=== PATIENT | female | born 1940 | race Caucasian/White ===

== ENCOUNTER 2017-06-30 10:44 | Emergency (ER) | payer MEDICARE, MEDICAID ==
[~2017-06-30] VITALS: Ht 152.4 cm; Wt 57.3 kg
[2017-06-30 11:26] LABS: BASOPHILS # (AUTO) 0.1 X10'3 (0-0.2); BASOPHILS % (AUTO) 0.5 % (0-1); EOSINOPHILS # (AUTO) 0.1 X10'3 (0-0.9); HEMATOCRIT 39.6 % (35.0-45.0); HEMOGLOBIN 13.6 g/dl (12.0-16.0); LYMPHOCYTES # (AUTO) 1.9 X10'3 (1.1-4.8); LYMPHOCYTES % (AUTO) 16.6 % (21-51); MEAN CORPUSCULAR HEMOGLOBIN 32.5 PG (27.0-31.0); MEAN CORPUSCULAR HGB CONC 34.4 % (33.0-36.5); MEAN CORPUSCULAR VOLUME 94.3 FL (78-98); MEAN PLATELET VOLUME 7.2 FL (7.4-10.4); MONOCYTES % (AUTO) 9.1 % (2-12); NEUTROPHILS # (AUTO) 8.4 X10'3 (1.8-7.7); NEUTROPHILS % (AUTO) 72.8 % (42-75); PLATELET COUNT 396 X10'3 (140-440); RED CELL DISTRIBUTION WIDTH 14.2 % (11.5-14.5); WHITE BLOOD COUNT 11.6 X10'3 (4.5-11.0)
[2017-06-30 11:53] LABS: ALANINE AMINOTRANSFERASE 26 U/L (12-78); ALBUMIN 3.5 G/DL (3.4-5.0); ALBUMIN/GLOBULIN RATIO 0.8 (1.1-1.5); ALKALINE PHOSPHATASE 78 IU/L (46-116); ANION GAP 11 (8-16); ASPARTATE AMINO TRANSFERASE 18 U/L (10-37); BILIRUBIN,TOTAL 0.3 MG/DL (0.1-1.0); BLOOD UREA NITROGEN 44 MG/DL (7-18); BUN/CREATININE RATIO 33.1 (6.6-38.0); CALCIUM 10.3 MG/DL (8.5-10.1); CHLORIDE 98 MMOL/L (99-107); CREATININE 1.33 MG/DL (0.40-0.90); ETHANOL < 0.010 GM/DL (0.0-0.010); GLUCOSE 112 MG/DL (70-104); POTASSIUM 3.8 MMOL/L (3.5-5.1); SODIUM 136 MMOL/L (135-145); TOTAL CARBON DIOXIDE 26.8 MMOL/L (24-32); TOTAL PROTEIN 7.9 G/DL (6.4-8.2); eGFR 39 ML/MIN
[2017-06-30 13:15] LABS: CLARITY,URINE TURBID (Clear); COLOR,URINE YELLOW (Yellow); GLUCOSE, URINE NEGATIVE (Neg); KETONES,URINE NEGATIVE (Neg); LEUKOCYTE ESTERASE ,URINE LARGE (Neg); NITRITES, URINE NEGATIVE (Neg); OCCULT BLOOD,URINE NEGATIVE (Neg); PROTEIN,URINE TRACE mg/dl (Neg); UROBILINOGEN,URINE 0.2 E.U/dL (0.2-1.0)
[2017-06-30 13:28] LABS: UA COLLECTION TYPE CLN CATCH MIDSTREAM
[2017-06-30 13:30] LABS: SQUAMOUS EPITHELIAL CELL,UR MANY /LPF (FEW)
[2017-06-30 13:31] LABS: MUCUS STRANDS NONE SEEN /LPF (Neg); TRANSITIONAL EPI CELLS,URINE FEW /HPF; WBC,URINE 50-100 /HPF (0-4)
[2017-06-30 13:32] LABS: BACTERIA,URINE 4+ /HPF (Neg); RBC,URINE 0-2 /HPF (0-2)
[2017-06-30 13:34] LABS: URINE AMPHETAMINE SCREEN NEGATIVE (Neg); URINE BARBITUATE SCREEN NEGATIVE (Neg); URINE BENZODIAZEPINES SCREEN NEGATIVE (Neg); URINE CANNABINOID SCREEN NEGATIVE (Neg); URINE COCAINE SCREEN NEGATIVE (Neg); URINE METHADONE SCREEN NEGATIVE (Neg); URINE OPIATE SCREEN NEGATIVE (Neg); URINE PHENCYCLIDINE SCREEN NEGATIVE (Neg)
[2017-06-30 17:23] VITALS: BP 112/55
[2017-06-30 17:36] LABS: CLARITY,URINE CLOUDY (Clear); COLOR,URINE STRAW (Yellow); GLUCOSE, URINE NEGATIVE (Neg); KETONES,URINE NEGATIVE (Neg); LEUKOCYTE ESTERASE ,URINE SMALL (Neg); NITRITES, URINE POSITIVE (Neg); OCCULT BLOOD,URINE NEGATIVE (Neg); PH,URINE 6.5 (4.8-8.0); PROTEIN,URINE NEGATIVE (Neg); UA COLLECTION TYPE STRAIGHT CATH; UROBILINOGEN,URINE 0.2 E.U/dL (0.2-1.0)
[2017-06-30 17:47] LABS: BACTERIA,URINE 3+ /HPF (Neg); MUCUS STRANDS NONE SEEN /LPF (Neg); RBC,URINE NONE SEEN /HPF (0-2); SQUAMOUS EPITHELIAL CELL,UR FEW /LPF (FEW); TRANSITIONAL EPI CELLS,URINE FEW /HPF
[2017-06-30] MEDS ORDERED: CEPH-572 PO (18:31)
[2017-06-30] MEDS ORDERED: LISI-600 PO (22:42)
[2017-06-30] MEDS ORDERED: SERT100T PO (22:42)
[2017-06-30] MEDS ORDERED: TRAZ-143 PO (22:42)
[2017-06-30] MEDS ORDERED: OSC500T PO (22:42)
== END 2017-06-30 20:34 | disposition home or self-care (01) ==
LOC: ER 10:45
DX: E83.52 Hypercalcemia (principal); N18.3 Chronic kidney disease, stage 3 (moderate); F32.9 Major depressive disorder, single episode, unspecified; N39.0 Urinary tract infection, site not specified
CPT/HCPCS: 36415; 80053; 80305; 80320; 81001; 84443; 85025; 87077; 87088; 87186; 99284

== ENCOUNTER 2017-06-30 19:50 | Inpatient (IN) | payer MEDICARE, MEDICAID ==
[~2017-06-30] VITALS: Ht 152.4 cm; Wt 55.6 kg
[~2017-06-30 19:50] MED LIST: CEPH-572 PO
[2017-06-30 21:00] VITALS: BP 113/64
[2017-06-30] MEDS ORDERED: traZODone 50mg tablet PO SCH (22:05)
[2017-06-30] MEDS ORDERED: SERT100T PO (22:42)
[2017-06-30] MEDS ORDERED: LISI-600 PO (22:42)
[2017-06-30] MEDS ORDERED: TRAZ-143 PO (22:42)
[2017-06-30] MEDS ORDERED: OSC500T PO (22:42)
[2017-07-01] MEDS ORDERED: OLANZapine 5mg rapidly disint. tablet PO ONE (00:40)
[2017-07-01] MEDS: lisinopril 20mg tablet PO SCH (07:43)
[2017-07-01] MEDS: calcium carbonate 500mg tablet PO SCH (07:43)
[2017-07-01] MEDS: cephalexin 500mg capsule PO SCH ×3 (07:43→23:02)
[2017-07-01] MEDS: sertraline 50mg tablet PO SCH (07:44)
[2017-07-01 08:00] VITALS: BP 80/50
[2017-07-01] MEDS ORDERED: levoFLOXACIN 500mg tablet PO ONE (11:35)
[2017-07-01] MEDS: sodium chloride 0.45% 1,000 ML IV SCH ×2 (12:28→22:30)
[2017-07-01] MEDS ORDERED: hydrOXYzine 25 MG tablet PO PRN (20:25)
[2017-07-01 20:30] VITALS: BP 93/50
[2017-07-01 20:41] VITALS: BP 93/49
[2017-07-01] MEDS ORDERED: mirtazapine 15mg tablet PO SCH (21:00)
[2017-07-02 06:18] LABS: HEMOGLOBIN A1C 6.1 % (4.5-6.2)
[2017-07-02 06:19] LABS: ALBUMIN 2.7 G/DL (3.4-5.0); ANION GAP 8 (8-16); BLOOD UREA NITROGEN 37 MG/DL (7-18); BUN/CREATININE RATIO 27.6 (6.6-38.0); CALCIUM 9.3 MG/DL (8.5-10.1); CHLORIDE 105 MMOL/L (99-107); CHOL/HDL RATIO 2.4 (0.00-4.99); CHOLESTEROL 170 MG/DL (0-200); CREATININE 1.34 MG/DL (0.40-0.90); GLUCOSE 94 MG/DL (70-104); HDL CHOLESTEROL 71 MG/DL (35-60); LDL CHOLESTEROL 79 MG/DL (50-100); POTASSIUM 4.1 MMOL/L (3.5-5.1); SODIUM 141 MMOL/L (135-145); TOTAL CARBON DIOXIDE 27.6 MMOL/L (24-32); TRIGLYCERIDES 80 MG/DL (20-135); eGFR 38 ML/MIN
[2017-07-02 08:10] VITALS: BP 121/68
[2017-07-02 08:15] LABS: IMMUNOGLOBULIN A, QN, SERUM 292 mg/dL (64-422); IMMUNOGLOBULIN G, QN, SERUM 1083 mg/dL (700-1600); IMMUNOGLOBULIN M, QN, SERUM 140 mg/dL (26-217)
[2017-07-02] MEDS: sodium chloride 0.45% 1,000 ML IV SCH ×2 (08:20→17:15)
[2017-07-02] MEDS: sertraline 50mg tablet PO SCH (08:43)
[2017-07-02] MEDS: calcium carbonate 500mg tablet PO SCH (08:43)
[2017-07-02] MEDS: lisinopril 20mg tablet PO SCH (08:44)
[2017-07-02] MEDS: levoFLOXACIN 250mg tablet PO SCH (08:55)
[2017-07-02] MEDS ORDERED: magnesium hydroxide 30ml (MOM) UD suspension PO PRN ×2 (09:55→18:45)
[2017-07-02 11:15] LABS: A/G RATIO 1.1 (0.7-1.7); ALBUMIN 3.6 g/dL (2.9-4.4); BETA GLOBULIN 1.1 g/dL (0.7-1.3); GAMMA GLOBULIN 1.1 g/dL (0.4-1.8); GLOBULIN, TOTAL 3.2 g/dL (2.2-3.9); M-SPIKE Not Observed g/dL (Not Observed); PROTEIN, TOTAL, SERUM 6.8 g/dL (6.0-8.5)
[2017-07-02] MEDS ORDERED: bisacodyl 5mg tablet.DR PO PRN (18:45)
[2017-07-02 19:44] VITALS: BP 88/52
[2017-07-02 20:00] VITALS: BP 95/55
[2017-07-02] MEDS: lactobacillus rhamnosus 10,000 MMU CELLS/CAPSULE PO SCH (20:06)
[2017-07-02] MEDS: docusate sodium 100mg/10ml UD cup PO SCH (20:06)
[2017-07-02] MEDS ORDERED: mirtazapine 15mg tablet PO SCH (21:00)
[2017-07-03] VITALS (15 sets, daily range): BP systolic 77–133; BP diastolic 35–62
[2017-07-03] MEDS: sodium chloride 0.45% 1,000 ML IV SCH (06:00)
[2017-07-03 06:12] LABS: ALBUMIN 2.4 G/DL (3.4-5.0); ANION GAP 7 (8-16); BLOOD UREA NITROGEN 33 MG/DL (7-18); BUN/CREATININE RATIO 23.6 (6.6-38.0); CALCIUM 8.8 MG/DL (8.5-10.1); CHLORIDE 107 MMOL/L (99-107); GLUCOSE 85 MG/DL (70-104); POTASSIUM 4.2 MMOL/L (3.5-5.1); SODIUM 140 MMOL/L (135-145); TOTAL CARBON DIOXIDE 25.8 MMOL/L (24-32); eGFR 37 ML/MIN
[2017-07-03] MEDS: docusate sodium 100mg/10ml UD cup PO SCH (08:00)
[2017-07-03] MEDS ORDERED: sertraline 50mg tablet PO SCH (08:00)
[2017-07-03] MEDS: lactobacillus rhamnosus 10,000 MMU CELLS/CAPSULE PO SCH (08:12)
[2017-07-03] MEDS: calcium carbonate 500mg tablet PO SCH (08:12)
[2017-07-03] MEDS: levoFLOXACIN 250mg tablet PO SCH (08:13)
[2017-07-03] MEDS: lisinopril 20mg tablet PO SCH (08:13)
[2017-07-03 09:08] LABS: BASOPHILS # (AUTO) 0.1 X10'3 (0-0.2); BASOPHILS % (AUTO) 0.7 % (0-1); EOSINOPHILS # (AUTO) 0.2 X10'3 (0-0.9); EOSINOPHILS % (AUTO) 2.1 % (0-6); HEMATOCRIT 32.7 % (35.0-45.0); HEMOGLOBIN 11.2 g/dl (12.0-16.0); LYMPHOCYTES # (AUTO) 2.1 X10'3 (1.1-4.8); LYMPHOCYTES % (AUTO) 25.4 % (21-51); MEAN CORPUSCULAR HEMOGLOBIN 32.5 PG (27.0-31.0); MEAN CORPUSCULAR HGB CONC 34.3 % (33.0-36.5); MEAN CORPUSCULAR VOLUME 94.8 FL (78-98); MEAN PLATELET VOLUME 6.8 FL (7.4-10.4); MONOCYTES # (AUTO) 0.7 X10'3 (0-0.9); MONOCYTES % (AUTO) 9.1 % (2-12); NEUTROPHILS # (AUTO) 5.2 X10'3 (1.8-7.7); NEUTROPHILS % (AUTO) 62.7 % (42-75); PLATELET COUNT 314 X10'3 (140-440); RED BLOOD COUNT 3.45 X10'6 (4.20-5.60); RED CELL DISTRIBUTION WIDTH 14.3 % (11.5-14.5); WHITE BLOOD COUNT 8.3 X10'3 (4.5-11.0)
[2017-07-03 09:22] LABS: ALANINE AMINOTRANSFERASE 19 U/L (12-78); ALBUMIN 2.7 G/DL (3.4-5.0); ALBUMIN/GLOBULIN RATIO 0.8 (1.1-1.5); ALKALINE PHOSPHATASE 61 IU/L (46-116); ANION GAP 8 (8-16); ASPARTATE AMINO TRANSFERASE 16 U/L (10-37); BILIRUBIN,TOTAL 0.6 MG/DL (0.1-1.0); BLOOD UREA NITROGEN 31 MG/DL (7-18); BUN/CREATININE RATIO 21.2 (6.6-38.0); CHLORIDE 106 MMOL/L (99-107); CREATININE 1.46 MG/DL (0.40-0.90); GLUCOSE 89 MG/DL (70-104); SODIUM 141 MMOL/L (135-145); TOTAL CARBON DIOXIDE 27.2 MMOL/L (24-32); TOTAL PROTEIN 6.3 G/DL (6.4-8.2); eGFR 35 ML/MIN
[2017-07-03 09:24] LABS: POTASSIUM 4.2 MMOL/L (3.5-5.1)
[2017-07-03] MEDS ORDERED: dextrose 5%-normal saline 1,000 ML IV ONE ×2 (13:20→14:20)
[2017-07-03 14:31] LABS: TROPONIN I < 0.04 NG/ML (0.0-0.05)
[2017-07-03] MEDS ORDERED: dextrose 5%-normal saline 1,000 ML IV SCH ×2 (14:35→18:55)
[2017-07-03 17:37] LABS: BASOPHILS # (AUTO) 0.1 X10'3 (0-0.2); BASOPHILS % (AUTO) 0.7 % (0-1); EOSINOPHILS # (AUTO) 0.1 X10'3 (0-0.9); EOSINOPHILS % (AUTO) 1.7 % (0-6); HEMATOCRIT 31.1 % (35.0-45.0); HEMOGLOBIN 10.5 g/dl (12.0-16.0); LYMPHOCYTES % (AUTO) 26.9 % (21-51); MEAN CORPUSCULAR HEMOGLOBIN 32.6 PG (27.0-31.0); MEAN CORPUSCULAR HGB CONC 33.8 % (33.0-36.5); MEAN CORPUSCULAR VOLUME 96.3 FL (78-98); MONOCYTES % (AUTO) 13.2 % (2-12); NEUTROPHILS # (AUTO) 4.3 X10'3 (1.8-7.7); NEUTROPHILS % (AUTO) 57.5 % (42-75); PLATELET COUNT 280 X10'3 (140-440); RED BLOOD COUNT 3.23 X10'6 (4.20-5.60); RED CELL DISTRIBUTION WIDTH 14.2 % (11.5-14.5); WHITE BLOOD COUNT 7.4 X10'3 (4.5-11.0)
[2017-07-03 17:55] LABS: ALANINE AMINOTRANSFERASE 20 U/L (12-78); ALBUMIN 2.4 G/DL (3.4-5.0); ALBUMIN/GLOBULIN RATIO 0.7 (1.1-1.5); ALKALINE PHOSPHATASE 53 IU/L (46-116); ANION GAP 8 (8-16); ASPARTATE AMINO TRANSFERASE 15 U/L (10-37); BILIRUBIN,TOTAL 0.3 MG/DL (0.1-1.0); BLOOD UREA NITROGEN 26 MG/DL (7-18); BUN/CREATININE RATIO 19.8 (6.6-38.0); CALCIUM 8.4 MG/DL (8.5-10.1); CHLORIDE 113 MMOL/L (99-107); CREATININE 1.31 MG/DL (0.40-0.90); GLUCOSE 103 MG/DL (70-104); LIPASE 163 U/L (73-393); POTASSIUM 3.9 MMOL/L (3.5-5.1); SODIUM 146 MMOL/L (135-145); TOTAL CARBON DIOXIDE 25.1 MMOL/L (24-32); TOTAL PROTEIN 5.7 G/DL (6.4-8.2); TROPONIN I < 0.04 NG/ML (0.0-0.05); eGFR 39 ML/MIN
[2017-07-03] MEDS ORDERED: normal saline 1000ml 1,000 ML IV ONE (18:55)
[2017-07-03] MEDS ORDERED: mirtazapine 15mg tablet PO SCH (21:00)
[2017-07-04 05:25] LABS: ALBUMIN, UR Note: % (.)
== END 2017-07-03 19:30 | disposition short-term general hospital (02) | DRG 881 ==
LOC: ADULT MH 19:50
PROVIDERS: ADMIT Psychiatry & Neurology Psychiatry; ATTEND Psychiatry & Neurology Psychiatry
DX: F32.9 Major depressive disorder, single episode, unspecified (principal); I95.9 Hypotension, unspecified; E83.52 Hypercalcemia; N39.0 Urinary tract infection, site not specified; G47.00 Insomnia, unspecified; K59.00 Constipation, unspecified; I10 Essential (primary) hypertension; F41.9 Anxiety disorder, unspecified; R63.4 Abnormal weight loss; Z98.51 Tubal ligation status; Z88.0 Allergy status to penicillin; Z68.23 Body mass index [BMI] 23.0-23.9, adult
CPT/HCPCS: 36415; 71045; 74230; 80048; 80053; 80061; 82310; 82330; 82784; 82948; 83036; 83690; 83970; 84155; 84156; 84165; 84166; 84484; 85025; 86334; 86335; 87040; 87070; 87088; 93005; 99285; J7030; J7042

== ENCOUNTER 2017-07-03 16:35 | Inpatient (IN) | payer MEDICARE, MEDICAID ==
[~2017-07-03] VITALS: Ht 152.4 cm; Wt 65.3 kg
[~2017-07-03 16:35] MED LIST changes: +LISI-600 PO; +OSC500T PO; +SERT100T PO; +TRAZ-143 PO
[2017-07-03] MEDS: levoFLOXACIN-Levaquin 500mg/D5 100 ML IV SCH (19:20)
[2017-07-03] MEDS ORDERED: magnesium hydroxide 30ml (MOM) UD suspension PO PRN (19:20)
[2017-07-03] MEDS ORDERED: ondansetron/PF 4mg/2ml inj IV PRN (19:20)
[2017-07-03] MEDS: dextrose 5%-1/2 normal saline 1,000 ML IV SCH (21:59)
[2017-07-03 22:00] VITALS: BP 88/41
[2017-07-03 22:35] LABS: ABG HCO3 23.1 mmol/L (22.0-26.0); ABG OXYGEN SATURATION 97.1 % (95-98); ABG PCO2 (T) 35.8 mmHg (32.0-45.0); ABG PH (T) 7.426 (7.350-7.450); ABG PO2 (T) 94.4 mmHg (83-108); ALLEN'S TEST Positive; FCOHb 0.3 % (0.5-1.5); FMetHb 0.1 % (0.3-1.12); FO2Hb 96.7 % (94-100); PATIENT TEMPERATURE 36.9; TOTAL HEMOGLOBIN 10.3 G/dl (12.0-16.0)
[2017-07-04] VITALS (9 sets, daily range): BP systolic 81–110; BP diastolic 37–58
[2017-07-04 01:40] LABS: CLARITY,URINE SLIGHTLY CLOUDY (Clear); COLOR,URINE YELLOW (Yellow); GLUCOSE, URINE NEGATIVE (Neg); KETONES,URINE NEGATIVE (Neg); LEUKOCYTE ESTERASE ,URINE MODERATE (Neg); NITRITES, URINE NEGATIVE (Neg); OCCULT BLOOD,URINE TRACE-INTACT (Neg); PH,URINE 5.5 (4.8-8.0); PROTEIN,URINE NEGATIVE (Neg); UROBILINOGEN,URINE 0.2 E.U/dL (0.2-1.0)
[2017-07-04 01:43] LABS: UA COLLECTION TYPE NON-SPECIFIED
[2017-07-04 01:47] LABS: BACTERIA,URINE 3+ /HPF (Neg); RBC,URINE 0-2 /HPF (0-2); SQUAMOUS EPITHELIAL CELL,UR MODERATE /LPF (FEW)
[2017-07-04 01:48] LABS: WBC CLUMPS,URINE FEW /HPF (NEGATIVE)
[2017-07-04 01:49] LABS: MUCUS STRANDS FEW /LPF (Neg)
[2017-07-04 01:50] LABS: HYALINE CASTS 0-3 /LPF (NEGATIVE)
[2017-07-04] MEDS: dextrose 5%-1/2 normal saline 1,000 ML IV SCH ×3 (05:09→16:50)
[2017-07-04 06:03] LABS: BASOPHILS % (AUTO) 0.6 % (0-1); EOSINOPHILS # (AUTO) 0.1 X10'3 (0-0.9); HEMATOCRIT 28.6 % (35.0-45.0); HEMOGLOBIN 9.9 g/dl (12.0-16.0); LYMPHOCYTES # (AUTO) 2.1 X10'3 (1.1-4.8); LYMPHOCYTES % (AUTO) 30.9 % (21-51); MEAN CORPUSCULAR HEMOGLOBIN 32.9 PG (27.0-31.0); MEAN CORPUSCULAR HGB CONC 34.5 % (33.0-36.5); MEAN CORPUSCULAR VOLUME 95.3 FL (78-98); MEAN PLATELET VOLUME 7.2 FL (7.4-10.4); MONOCYTES # (AUTO) 0.6 X10'3 (0-0.9); MONOCYTES % (AUTO) 8.2 % (2-12); NEUTROPHILS # (AUTO) 3.9 X10'3 (1.8-7.7); NEUTROPHILS % (AUTO) 58.3 % (42-75); PLATELET COUNT 261 X10'3 (140-440); RED CELL DISTRIBUTION WIDTH 14.2 % (11.5-14.5); WHITE BLOOD COUNT 6.8 X10'3 (4.5-11.0)
[2017-07-04 06:22] LABS: ALANINE AMINOTRANSFERASE 18 U/L (12-78); ALBUMIN 2.2 G/DL (3.4-5.0); ALBUMIN/GLOBULIN RATIO 0.8 (1.1-1.5); ALKALINE PHOSPHATASE 45 IU/L (46-116); ANION GAP 9 (8-16); ASPARTATE AMINO TRANSFERASE 11 U/L (10-37); BILIRUBIN,TOTAL 0.4 MG/DL (0.1-1.0); BLOOD UREA NITROGEN 19 MG/DL (7-18); BUN/CREATININE RATIO 18.6 (6.6-38.0); CHLORIDE 112 MMOL/L (99-107); CREATININE 1.02 MG/DL (0.40-0.90); GLUCOSE 96 MG/DL (70-104); POTASSIUM 3.9 MMOL/L (3.5-5.1); SODIUM 144 MMOL/L (135-145); TOTAL CARBON DIOXIDE 23.5 MMOL/L (24-32); TOTAL PROTEIN 5.1 G/DL (6.4-8.2); eGFR 53 ML/MIN
[2017-07-04] MEDS: levoFLOXACIN-Levaquin 500mg/D5 100 ML IV SCH (07:33)
[2017-07-04] MEDS ORDERED: ALPRAZolam 0.25mg tablet PO ONE (08:20)
[2017-07-04] MEDS: lactobacillus rhamnosus 10,000 MMU CELLS/CAPSULE PO SCH (21:17)
[2017-07-05] MEDS: dextrose 5%-1/2 normal saline 1,000 ML IV SCH ×2 (01:39→13:18)
[2017-07-05 03:52] VITALS: BP 82/40
[2017-07-05 05:34] LABS: BASOPHILS % (AUTO) 0.6 % (0-1); EOSINOPHILS # (AUTO) 0.2 X10'3 (0-0.9); EOSINOPHILS % (AUTO) 2.9 % (0-6); HEMATOCRIT 30.5 % (35.0-45.0); HEMOGLOBIN 10.3 g/dl (12.0-16.0); LYMPHOCYTES # (AUTO) 2.4 X10'3 (1.1-4.8); MEAN CORPUSCULAR HEMOGLOBIN 32.4 PG (27.0-31.0); MEAN CORPUSCULAR HGB CONC 33.9 % (33.0-36.5); MEAN CORPUSCULAR VOLUME 95.8 FL (78-98); MEAN PLATELET VOLUME 6.9 FL (7.4-10.4); MONOCYTES # (AUTO) 0.6 X10'3 (0-0.9); MONOCYTES % (AUTO) 9.2 % (2-12); NEUTROPHILS # (AUTO) 3.4 X10'3 (1.8-7.7); NEUTROPHILS % (AUTO) 51.3 % (42-75); PLATELET COUNT 267 X10'3 (140-440); RED BLOOD COUNT 3.18 X10'6 (4.20-5.60); WHITE BLOOD COUNT 6.6 X10'3 (4.5-11.0)
[2017-07-05 05:48] LABS: GLUCOSE 91 MG/DL (70-104)
[2017-07-05 05:49] LABS: ALANINE AMINOTRANSFERASE 20 U/L (12-78); ALBUMIN 2.2 G/DL (3.4-5.0); ALBUMIN/GLOBULIN RATIO 0.8 (1.1-1.5); ALKALINE PHOSPHATASE 47 IU/L (46-116); ANION GAP 10 (8-16); ASPARTATE AMINO TRANSFERASE 15 U/L (10-37); BILIRUBIN,TOTAL 0.3 MG/DL (0.1-1.0); BLOOD UREA NITROGEN 13 MG/DL (7-18); BUN/CREATININE RATIO 11.1 (6.6-38.0); CALCIUM 8.4 MG/DL (8.5-10.1); CHLORIDE 111 MMOL/L (99-107); CREATININE 1.17 MG/DL (0.40-0.90); POTASSIUM 3.6 MMOL/L (3.5-5.1); SODIUM 144 MMOL/L (135-145); TOTAL CARBON DIOXIDE 22.8 MMOL/L (24-32); TOTAL PROTEIN 5.1 G/DL (6.4-8.2); eGFR 45 ML/MIN
[2017-07-05 06:00] VITALS: BP 94/45
[2017-07-05] MEDS: lactobacillus rhamnosus 10,000 MMU CELLS/CAPSULE PO SCH ×2 (08:44→20:10)
[2017-07-05] MEDS: levoFLOXACIN-Levaquin 500mg/D5 100 ML IV SCH (08:45)
[2017-07-05] MEDS ORDERED: diatrozoate meglu/diatrozoate sod (37% iodine) 120ML oral solution PO SCH (10:25)
[2017-07-05] MEDS: diatr meglu/diatrizoate 30ml oral sol.-(3 dose) bottle PO SCH ×2 (10:40→13:18)
[2017-07-05 11:00] VITALS: BP 107/65
[2017-07-05 15:00] VITALS: BP 120/55
[2017-07-05] MEDS ORDERED: iohexol 300mg/ml 100ml inj. ONE (16:05)
[2017-07-05 19:00] VITALS: BP 125/58
[2017-07-05 23:00] VITALS: BP 107/59
[2017-07-06] VITALS (10 sets, daily range): BP systolic 101–148; BP diastolic 55–122
[2017-07-06] MEDS: dextrose 5%-1/2 normal saline 1,000 ML IV SCH ×3 (00:09→18:37)
[2017-07-06 05:16] LABS: BASOPHILS % (AUTO) 0.4 % (0-1); EOSINOPHILS # (AUTO) 0.2 X10'3 (0-0.9); EOSINOPHILS % (AUTO) 2.5 % (0-6); HEMATOCRIT 33.4 % (35.0-45.0); HEMOGLOBIN 11.2 g/dl (12.0-16.0); LYMPHOCYTES # (AUTO) 2.1 X10'3 (1.1-4.8); MEAN CORPUSCULAR HEMOGLOBIN 32.4 PG (27.0-31.0); MEAN CORPUSCULAR HGB CONC 33.6 % (33.0-36.5); MEAN CORPUSCULAR VOLUME 96.4 FL (78-98); MEAN PLATELET VOLUME 6.8 FL (7.4-10.4); MONOCYTES # (AUTO) 0.6 X10'3 (0-0.9); MONOCYTES % (AUTO) 8.5 % (2-12); NEUTROPHILS # (AUTO) 4.4 X10'3 (1.8-7.7); NEUTROPHILS % (AUTO) 59.6 % (42-75); PLATELET COUNT 313 X10'3 (140-440); RED BLOOD COUNT 3.46 X10'6 (4.20-5.60); WHITE BLOOD COUNT 7.4 X10'3 (4.5-11.0)
[2017-07-06 05:49] LABS: ALANINE AMINOTRANSFERASE 19 U/L (12-78); ALBUMIN 2.3 G/DL (3.4-5.0); ALBUMIN/GLOBULIN RATIO 0.7 (1.1-1.5); ALKALINE PHOSPHATASE 58 IU/L (46-116); ANION GAP 8 (8-16); ASPARTATE AMINO TRANSFERASE 15 U/L (10-37); BILIRUBIN,TOTAL 0.3 MG/DL (0.1-1.0); BLOOD UREA NITROGEN 8 MG/DL (7-18); BUN/CREATININE RATIO 7.2 (6.6-38.0); CALCIUM 8.7 MG/DL (8.5-10.1); CHLORIDE 109 MMOL/L (99-107); CREATININE 1.11 MG/DL (0.40-0.90); GLUCOSE 95 MG/DL (70-104); POTASSIUM 3.6 MMOL/L (3.5-5.1); SODIUM 142 MMOL/L (135-145); TOTAL CARBON DIOXIDE 24.7 MMOL/L (24-32); TOTAL PROTEIN 5.7 G/DL (6.4-8.2); eGFR 48 ML/MIN
[2017-07-06] MEDS: lactobacillus rhamnosus 10,000 MMU CELLS/CAPSULE PO SCH ×2 (08:19→21:26)
[2017-07-06] MEDS ORDERED: fentaNYL/PF 50MCG/1 ML 2ML syringe ONE (16:02)
[2017-07-06] MEDS ORDERED: MIDAZolam 5mg/5ml vial ONE (16:02)
[2017-07-06] MEDS ORDERED: LIDOcaine Viscous 15ml cup ONE (16:02)
[2017-07-06] MEDS ORDERED: normal saline 1000ml 1,000 ML IV SCH (17:54)
[2017-07-06] MEDS ORDERED: fentaNYL/PF 50MCG/1 ML 2ML syringe IV PRN (17:55)
[2017-07-06] MEDS ORDERED: LIDOcaine Viscous 15ml cup PO ONE (17:55)
[2017-07-06] MEDS ORDERED: MIDAZolam 5mg/5ml vial IV PRN (17:55)
[2017-07-06] MEDS ORDERED: simethicone 40mg/0.6ml oral drops 30ml MC ONE ×2 (17:55→18:15)
[2017-07-06] MEDS ORDERED: mirtazapine 15mg tablet PO SCH (21:00)
[2017-07-07 03:00] VITALS: BP 103/59
[2017-07-07] MEDS: dextrose 5%-1/2 normal saline 1,000 ML IV SCH (04:37)
[2017-07-07 05:50] LABS: ALANINE AMINOTRANSFERASE 18 U/L (12-78); ALBUMIN 2.2 G/DL (3.4-5.0); ALBUMIN/GLOBULIN RATIO 0.7 (1.1-1.5); ALKALINE PHOSPHATASE 57 IU/L (46-116); ANION GAP 7 (8-16); ASPARTATE AMINO TRANSFERASE 15 U/L (10-37); BILIRUBIN,TOTAL 0.5 MG/DL (0.1-1.0); BLOOD UREA NITROGEN 8 MG/DL (7-18); BUN/CREATININE RATIO 7.5 (6.6-38.0); CALCIUM 8.5 MG/DL (8.5-10.1); CHLORIDE 110 MMOL/L (99-107); CREATININE 1.06 MG/DL (0.40-0.90); GLUCOSE 93 MG/DL (70-104); POTASSIUM 3.5 MMOL/L (3.5-5.1); SODIUM 145 MMOL/L (135-145); TOTAL CARBON DIOXIDE 27.7 MMOL/L (24-32); TOTAL PROTEIN 5.4 G/DL (6.4-8.2); eGFR 50 ML/MIN
[2017-07-07 05:57] LABS: BASOPHILS # (AUTO) 0.1 X10'3 (0-0.2); BASOPHILS % (AUTO) 0.6 % (0-1); EOSINOPHILS # (AUTO) 0.2 X10'3 (0-0.9); EOSINOPHILS % (AUTO) 1.9 % (0-6); HEMATOCRIT 30.6 % (35.0-45.0); HEMOGLOBIN 10.6 g/dl (12.0-16.0); LYMPHOCYTES # (AUTO) 2.1 X10'3 (1.1-4.8); LYMPHOCYTES % (AUTO) 24.4 % (21-51); MEAN CORPUSCULAR HGB CONC 34.8 % (33.0-36.5); MEAN CORPUSCULAR VOLUME 94.8 FL (78-98); MEAN PLATELET VOLUME 7.1 FL (7.4-10.4); MONOCYTES # (AUTO) 0.8 X10'3 (0-0.9); MONOCYTES % (AUTO) 9.1 % (2-12); NEUTROPHILS # (AUTO) 5.3 X10'3 (1.8-7.7); PLATELET COUNT 280 X10'3 (140-440); RED BLOOD COUNT 3.23 X10'6 (4.20-5.60); RED CELL DISTRIBUTION WIDTH 12.8 % (11.5-14.5); WHITE BLOOD COUNT 8.5 X10'3 (4.5-11.0)
[2017-07-07 06:00] VITALS: BP 109/54
[2017-07-07] MEDS ORDERED: pantoprazole 40mg Tablet.DR PO SCH (07:00)
[2017-07-07] MEDS: lactobacillus rhamnosus 10,000 MMU CELLS/CAPSULE PO SCH (07:30)
[2017-07-07 11:00] VITALS: BP 103/48
[2017-07-07] MEDS ORDERED: PANT40TA4 PO (12:23)
[2017-07-07] MEDS ORDERED: MIRT15TA8 PO (12:23)
== END 2017-07-07 14:55 | disposition home or self-care (01) | DRG 314 ==
LOC: PCU 3S 16:35
PROVIDERS: ADMIT Emergency Medicine; ATTEND Family Medicine
DX: I95.9 Hypotension, unspecified (principal); E43 Unspecified severe protein-calorie malnutrition; D64.9 Anemia, unspecified; Z68.28 Body mass index [BMI] 28.0-28.9, adult; E83.51 Hypocalcemia; F32.9 Major depressive disorder, single episode, unspecified; I12.9 Hypertensive chronic kidney disease with stage 1 through stage 4 chronic kidney disease, or unspecified chronic kidney disease; K29.70 Gastritis, unspecified, without bleeding; M81.0 Age-related osteoporosis without current pathological fracture; N18.9 Chronic kidney disease, unspecified; Z88.0 Allergy status to penicillin
CPT/HCPCS: 36415; 36600; 43239; 71260; 74177; 80053; 81001; 82803; 84484; 85018; 85025; 87070; 87077; 87088; 87186; 93005; 93306; 97110; 97116; 97162; 97530; A4620; G0500; J1956; J2250; J3010; J7030; J7042; Q9963; Q9967

== ENCOUNTER 2017-07-07 12:10 | Inpatient (IN) | payer MEDICARE, MEDICAID ==
[~2017-07-07] VITALS: Ht 152.4 cm; Wt 60.0 kg
[2017-07-07] MEDS ORDERED: PANT40TA4 PO (12:23)
[2017-07-07] MEDS ORDERED: MIRT15TA8 PO (12:23)
[2017-07-07 20:06] VITALS: BP 107/45
[2017-07-07] MEDS: mirtazapine 15mg tablet PO SCH (21:01)
[2017-07-08 08:00] VITALS: BP 136/109
[2017-07-08] MEDS: pantoprazole 40mg Tablet.DR PO SCH (08:33)
[2017-07-08] MEDS: lactobacillus rhamnosus 10,000 MMU CELLS/CAPSULE PO SCH (08:33)
[2017-07-08] MEDS: LORazepam 0.5 MG tablet PO PRN (19:41)
[2017-07-08 20:37] VITALS: BP 120/63
[2017-07-08] MEDS: mirtazapine 15mg tablet PO SCH (21:00)
[2017-07-09] MEDS: lactobacillus rhamnosus 10,000 MMU CELLS/CAPSULE PO SCH (07:18)
[2017-07-09] MEDS: pantoprazole 40mg Tablet.DR PO SCH (07:18)
[2017-07-09 08:57] VITALS: BP 110/59
[2017-07-09] MEDS: LORazepam 0.5 MG tablet PO PRN (12:43)
[2017-07-09 19:13] VITALS: BP 117/69
[2017-07-09] MEDS: mirtazapine 15mg tablet PO SCH (20:23)
[2017-07-10] MEDS: LORazepam 0.5 MG tablet PO PRN (07:35)
[2017-07-10] MEDS: lactobacillus rhamnosus 10,000 MMU CELLS/CAPSULE PO SCH (07:35)
[2017-07-10] MEDS: pantoprazole 40mg Tablet.DR PO SCH (07:35)
[2017-07-10 08:00] VITALS: BP 97/67
[2017-07-10 19:55] VITALS: BP 122/51
[2017-07-10] MEDS: mirtazapine 15mg tablet PO SCH (20:28)
[2017-07-11] MEDS: pantoprazole 40mg Tablet.DR PO SCH (07:42)
[2017-07-11] MEDS: lactobacillus rhamnosus 10,000 MMU CELLS/CAPSULE PO SCH (07:42)
[2017-07-11] MEDS: Protein Smoothie (high protein) 240ml (8oz) cup PO SCH ×3 (08:00→18:00)
[2017-07-11 08:36] VITALS: BP 101/58
[2017-07-11 19:45] VITALS: BP 118/67
[2017-07-11] MEDS: mirtazapine 15mg tablet PO SCH (20:51)
[2017-07-12 07:39] VITALS: BP 127/60
[2017-07-12] MEDS: pantoprazole 40mg Tablet.DR PO SCH (08:30)
[2017-07-12] MEDS: lactobacillus rhamnosus 10,000 MMU CELLS/CAPSULE PO SCH (08:30)
[2017-07-12] MEDS: venlafaxine XR 37.5mg cap (Q24H) PO SCH (08:30)
[2017-07-12] MEDS: Protein Smoothie (high protein) 240ml (8oz) cup PO SCH ×3 (08:30→18:00)
[2017-07-12] MEDS: LORazepam 0.5 MG tablet PO PRN ×2 (10:51→23:57)
[2017-07-12 19:14] VITALS: BP 111/52
[2017-07-12] MEDS: mirtazapine 15mg tablet PO SCH (20:25)
[2017-07-13 08:04] VITALS: BP 137/64
[2017-07-13] MEDS: venlafaxine XR 37.5mg cap (Q24H) PO SCH (08:20)
[2017-07-13] MEDS: lactobacillus rhamnosus 10,000 MMU CELLS/CAPSULE PO SCH (08:20)
[2017-07-13] MEDS: pantoprazole 40mg Tablet.DR PO SCH (08:20)
[2017-07-13] MEDS: Protein Smoothie (high protein) 240ml (8oz) cup PO SCH ×3 (08:22→18:00)
[2017-07-13 19:17] VITALS: BP 115/40
[2017-07-13] MEDS: traZODone 50mg tablet PO PRN (20:59)
[2017-07-13] MEDS: mirtazapine 15mg tablet PO SCH (21:00)
[2017-07-14 08:00] VITALS: BP 125/74
[2017-07-14] MEDS: Protein Smoothie (high protein) 240ml (8oz) cup PO SCH ×3 (08:00→18:00)
[2017-07-14] MEDS: pantoprazole 40mg Tablet.DR PO SCH (08:59)
[2017-07-14] MEDS: lactobacillus rhamnosus 10,000 MMU CELLS/CAPSULE PO SCH (08:59)
[2017-07-14] MEDS: venlafaxine XR 37.5mg cap (Q24H) PO SCH (08:59)
[2017-07-14 19:59] VITALS: BP 101/47
[2017-07-14] MEDS: mirtazapine 15mg tablet PO SCH (20:26)
[2017-07-15] MEDS: pantoprazole 40mg Tablet.DR PO SCH (07:19)
[2017-07-15 08:00] VITALS: BP 122/62
[2017-07-15] MEDS: lactobacillus rhamnosus 10,000 MMU CELLS/CAPSULE PO SCH (08:12)
[2017-07-15] MEDS: venlafaxine XR 37.5mg cap (Q24H) PO SCH (08:12)
[2017-07-15] MEDS: Protein Smoothie (high protein) 240ml (8oz) cup PO SCH ×3 (08:13→18:00)
[2017-07-15 20:00] VITALS: BP 116/62
[2017-07-15] MEDS: mirtazapine 15mg tablet PO SCH (20:53)
[2017-07-16] MEDS: pantoprazole 40mg Tablet.DR PO SCH (07:58)
[2017-07-16] MEDS: lactobacillus rhamnosus 10,000 MMU CELLS/CAPSULE PO SCH (07:58)
[2017-07-16] MEDS: venlafaxine XR 37.5mg cap (Q24H) PO SCH (07:58)
[2017-07-16 08:00] VITALS: BP 119/65
[2017-07-16] MEDS: Protein Smoothie (high protein) 240ml (8oz) cup PO SCH ×3 (08:00→18:00)
[2017-07-16 19:30] VITALS: BP 112/64
[2017-07-16] MEDS: mirtazapine 15mg tablet PO SCH (20:42)
[2017-07-17] MEDS: LORazepam 0.5 MG tablet PO PRN (03:23)
[2017-07-17 07:34] VITALS: BP 123/66
[2017-07-17] MEDS: pantoprazole 40mg Tablet.DR PO SCH (07:43)
[2017-07-17] MEDS: venlafaxine XR 37.5mg cap (Q24H) PO SCH (08:54)
[2017-07-17] MEDS: lactobacillus rhamnosus 10,000 MMU CELLS/CAPSULE PO SCH (08:54)
[2017-07-17] MEDS: Protein Smoothie (high protein) 240ml (8oz) cup PO SCH ×3 (08:55→18:42)
[2017-07-17 19:00] VITALS: BP 119/71
[2017-07-17] MEDS: mirtazapine 15mg tablet PO SCH (20:11)
[2017-07-17] MEDS: traZODone 50mg tablet PO PRN (20:11)
[2017-07-18] MEDS: pantoprazole 40mg Tablet.DR PO SCH (07:43)
[2017-07-18] MEDS: venlafaxine XR 37.5mg cap (Q24H) PO SCH (07:44)
[2017-07-18] MEDS: lactobacillus rhamnosus 10,000 MMU CELLS/CAPSULE PO SCH (07:44)
[2017-07-18 08:00] VITALS: BP 127/71
[2017-07-18] MEDS: Protein Smoothie (high protein) 240ml (8oz) cup PO SCH ×3 (08:01→18:00)
[2017-07-18 19:50] VITALS: BP 122/65
[2017-07-18] MEDS: traZODone 50mg tablet PO PRN (20:15)
[2017-07-18] MEDS: mirtazapine 15mg tablet PO SCH (20:15)
[2017-07-19] MEDS: pantoprazole 40mg Tablet.DR PO SCH (07:16)
[2017-07-19] MEDS: venlafaxine XR 37.5mg cap (Q24H) PO SCH (08:22)
[2017-07-19] MEDS: lactobacillus rhamnosus 10,000 MMU CELLS/CAPSULE PO SCH (08:22)
[2017-07-19] MEDS: Protein Smoothie (high protein) 240ml (8oz) cup PO SCH ×3 (08:23→18:00)
[2017-07-19 08:50] VITALS: BP 131/59
[2017-07-19 19:33] VITALS: BP 113/45
[2017-07-19] MEDS: mirtazapine 15mg tablet PO SCH (21:34)
[2017-07-19] MEDS: traZODone 50mg tablet PO PRN (21:40)
[2017-07-20] MEDS: pantoprazole 40mg Tablet.DR PO SCH (07:13)
[2017-07-20] MEDS: venlafaxine XR 37.5mg cap (Q24H) PO SCH (07:13)
[2017-07-20] MEDS: lactobacillus rhamnosus 10,000 MMU CELLS/CAPSULE PO SCH (07:13)
[2017-07-20 08:00] VITALS: BP 108/54
[2017-07-20] MEDS: Protein Smoothie (high protein) 240ml (8oz) cup PO SCH (08:21)
[2017-07-20] MEDS ORDERED: TRAZ-143 PO (12:09)
[2017-07-20] MEDS ORDERED: MIRT15TA8 PO (12:09)
[2017-07-20] MEDS ORDERED: EFF37.5XRC PO (12:09)
[2017-07-20] MEDS ORDERED: PANT40TA4 PO (12:09)
== END 2017-07-20 12:50 | disposition home or self-care (01) | DRG 881 ==
LOC: ADULT MH 12:10
PROVIDERS: ADMIT Psychiatry & Neurology Psychiatry; ATTEND Psychiatry & Neurology Psychiatry
DX: F32.9 Major depressive disorder, single episode, unspecified (principal); F41.9 Anxiety disorder, unspecified; G47.00 Insomnia, unspecified; K29.70 Gastritis, unspecified, without bleeding; R32 Unspecified urinary incontinence; Z98.51 Tubal ligation status; Z79.899 Other long term (current) drug therapy; Z88.0 Allergy status to penicillin
CPT/HCPCS: 92616; 97116; 97161; 97530; 99285

== ENCOUNTER 2018-04-06 11:28 | Emergency (ER) | payer MEDICARE, OTHER ==
[~2018-04-06] VITALS: Ht 149.9 cm; Wt 68.2 kg
[~2018-04-06 11:28] MED LIST changes: -CEPH-572 PO; +EFF37.5XRC PO; -LISI-600 PO; +MIRT15TA8 PO; +PANT40TA4 PO; -SERT100T PO; -TRAZ-143 PO; +TRAZ-218 PO
--- NOTE | 2018-04-06 12:31 | NUR ---
patient is not suicidal, is here because she is cognitively declining and requiring more care etc. Hoping that there is bed space available in [facility], no beds available currently, spoke with [facility], they suggested a Telepsych Consult for starters
[2018-04-06 12:43] LABS: BASOPHILS # (AUTO) 0.1 X10'3 (0-0.2); BASOPHILS % (AUTO) 0.6 % (0-1); EOSINOPHILS # (AUTO) 0.1 X10'3 (0-0.9); EOSINOPHILS % (AUTO) 0.6 % (0-6); HEMATOCRIT 47.1 % (35.0-45.0); HEMOGLOBIN 15.3 g/dl (12.0-16.0); LYMPHOCYTES # (AUTO) 1.4 X10'3 (1.1-4.8); LYMPHOCYTES % (AUTO) 14.3 % (21-51); MEAN CORPUSCULAR HEMOGLOBIN 31.4 PG (27.0-31.0); MEAN CORPUSCULAR HGB CONC 32.5 % (33.0-36.5); MEAN CORPUSCULAR VOLUME 96.5 FL (78-98); MEAN PLATELET VOLUME 7.2 FL (7.4-10.4); MONOCYTES # (AUTO) 0.8 X10'3 (0-0.9); MONOCYTES % (AUTO) 7.5 % (2-12); NEUTROPHILS # (AUTO) 7.7 X10'3 (1.8-7.7); PLATELET COUNT 371 X10'3 (140-440); RED BLOOD COUNT 4.88 X10'6 (4.20-5.60); RED CELL DISTRIBUTION WIDTH 13.3 % (11.5-14.5)
[2018-04-06 13:15] LABS: ALANINE AMINOTRANSFERASE 21 U/L (12-78); ALBUMIN 3.5 G/DL (3.4-5.0); ALBUMIN/GLOBULIN RATIO 0.8 (1.1-1.5); ALKALINE PHOSPHATASE 92 IU/L (46-116); ANION GAP 9 (8-16); ASPARTATE AMINO TRANSFERASE 18 U/L (10-37); BILIRUBIN,TOTAL 0.3 MG/DL (0.1-1.0); BLOOD UREA NITROGEN 18 MG/DL (7-18); BUN/CREATININE RATIO 19.4 (6.6-38.0); CALCIUM 9.3 MG/DL (8.5-10.1); CHLORIDE 101 MMOL/L (99-107); CREATININE 0.93 MG/DL (0.40-0.90); GLUCOSE 80 MG/DL (70-104); POTASSIUM 3.4 MMOL/L (3.5-5.1); SODIUM 139 MMOL/L (135-145); TOTAL CARBON DIOXIDE 29.5 MMOL/L (24-32); TOTAL PROTEIN 7.9 G/DL (6.4-8.2); eGFR 58 ML/MIN
[2018-04-06 13:24] LABS: ETHANOL < 0.010 GM/DL (0.0-0.010)
--- NOTE | 2018-04-06 14:04 | NUR ---
RECOMENDATIONS SENT BY TELE PSYCH... GAVE RECOMENDATIONS TO DR. BONDS. SEE NEW ORDERS.
[2018-04-06 14:17] LABS: CLARITY,URINE SLIGHTLY CLOUDY (Clear); COLOR,URINE YELLOW (Yellow); GLUCOSE, URINE NEGATIVE (Neg); KETONES,URINE NEGATIVE (Neg); LEUKOCYTE ESTERASE ,URINE NEGATIVE (Neg); NITRITES, URINE POSITIVE (Neg); OCCULT BLOOD,URINE TRACE-LYSED (Neg); PROTEIN,URINE TRACE mg/dl (Neg); UROBILINOGEN,URINE 0.2 E.U/dL (0.2-1.0)
[2018-04-06 14:19] LABS: URINE AMPHETAMINE SCREEN NEGATIVE (Neg); URINE BARBITUATE SCREEN NEGATIVE (Neg); URINE BENZODIAZEPINES SCREEN NEGATIVE (Neg); URINE CANNABINOID SCREEN NEGATIVE (Neg); URINE COCAINE SCREEN NEGATIVE (Neg); URINE METHADONE SCREEN NEGATIVE (Neg); URINE OPIATE SCREEN NEGATIVE (Neg); URINE PHENCYCLIDINE SCREEN NEGATIVE (Neg)
[2018-04-06 14:25] LABS: UA COLLECTION TYPE CLN CATCH MIDSTREAM
[2018-04-06 14:30] LABS: BACTERIA,URINE 4+ /HPF (Neg); RBC,URINE 0-2 /HPF (0-2); SQUAMOUS EPITHELIAL CELL,UR FEW /LPF (FEW); WBC,URINE 0-4 /HPF (0-4)
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
[2018-04-06] MEDS: ciprofloxacin 250mg tablet PO SCH (20:24)
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
--- NOTE | 2018-04-07 04:34 | NUR ---
Pt reporting feeling dizzy after just waking up, BP assessed and found to be 185/95. spoke with and he will evaluate med list and place orders accordingly.
--- NOTE | 2018-04-07 06:50 | NUR ---
Pt laying supine awake. Pt calm, no distress observed.
[2018-04-07 07:58] VITALS: BP 139/88
[2018-04-07] MEDS: ciprofloxacin 250mg tablet PO SCH (08:34)
--- NOTE | 2018-04-07 08:41 | NUR ---
Patient alert. She knows what day it is and why she is here. She appears anxious, wringing hands and states "Everybody here is mad at me." She is provided assurance that no one is mad. Medications administered without issue.
[2018-04-07] MEDS ORDERED: SERT50TA PO (09:08)
[2018-04-07] MEDS ORDERED: LORA0.5T PO (09:08)
[2018-04-07] MEDS ORDERED: VENL150C2 PO (09:08)
[2018-04-07] MEDS ORDERED: TRAZ-218 PO (09:10)
[2018-04-07] MEDS ORDERED: LORazepam 0.5 MG tablet PO PRN (09:30)
--- NOTE | 2018-04-07 10:00 | NUR ---
Patient gets up from bed grabbing her shoes and stating "Did you tell her? Did you tell her I dont have a ride home." Patient thinks that she is being discharged and does not have a ride home. RN assured patient that she is not being discharged right now. Patient layed back down in bed.
[2018-04-07] MEDS ORDERED: sertraline 50mg tablet PO SCH (10:13)
[2018-04-07] MEDS ORDERED: venlafaxine XR 75mg capsule (Q24H) PO SCH (10:15)
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
--- NOTE | 2018-04-07 12:40 | NUR ---
Pt's son called and Bella was not in. Son spoke to OPAL Flores and advised that patient does not meet criteria for admission to [facility]. Patient wanted his mom's medication adjusted and her evaluated. Son stated he would try to arrange for his mom to be picked up, otherwise he will be back in town on Friday.
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
[2018-04-07] MEDS ORDERED: lactobacillus rhamnosus 10,000 MMU CELLS/CAPSULE PO SCH (20:00)
[2018-04-07] MEDS ORDERED: traZODone 50mg tablet PO SCH (21:00)
== END 2018-04-07 13:35 | disposition home or self-care (01) ==
LOC: ER 11:30
DX: F32.9 Major depressive disorder, single episode, unspecified (principal); I10 Essential (primary) hypertension; Z88.0 Allergy status to penicillin; Z79.899 Other long term (current) drug therapy; Z60.9 Problem related to social environment, unspecified
CPT/HCPCS: 36415; 70450; 80053; 80305; 80320; 81001; 82607; 84443; 85025; 99284; 99285

== ENCOUNTER 2024-05-26 06:33 | Inpatient (IN) | payer MEDICARE, OTHER ==
[2024-05-18 10:49] LABS: BASOPHILS # (AUTO) 0.1 X10'3 (0-0.2); BASOPHILS % (AUTO) 1.2 % (0-1); EOSINOPHILS # (AUTO) 0.2 X10'3 (0-0.9); EOSINOPHILS % (AUTO) 2.5 % (0-6); LYMPHOCYTES % (AUTO) 25.1 % (21-51); MEAN CORPUSCULAR HEMOGLOBIN 31.1 PG (27.0-31.0); MEAN CORPUSCULAR VOLUME 94.2 FL (78-98); MEAN PLATELET VOLUME 7.4 FL (7.4-10.4); MONOCYTES # (AUTO) 0.6 X10'3 (0-0.9); MONOCYTES % (AUTO) 7.6 % (2-12); NEUTROPHILS % (AUTO) 63.6 % (42-75); PRE OP HEMATOCRIT 40.8 % (35.0-45.0); PRE OP HEMOGLOBIN 13.5 g/dL (12.0-16.0); PRE OP PLATELET COUNT 331 X10'3 (140-440); PRE OP WHITE BLOOD COUNT 7.9 10'3 (4.8-10.8); RED BLOOD COUNT 4.33 X10'6 (4.20-5.60); RED CELL DISTRIBUTION WIDTH 14.2 % (11.5-14.5)
[2024-05-18 11:09] LABS: ALBUMIN 3.6 G/DL (3.4-5.0); ALBUMIN/GLOBULIN RATIO 0.8 (1.1-1.5); ALKALINE PHOSPHATASE 90 IU/L (46-116); BLOOD UREA NITROGEN 18 MG/DL (7-18); BUN/CREATININE RATIO 18.2 (10.0-20.0); CALCIUM 10.2 MG/DL (8.5-10.1); CHLORIDE 106 MMOL/L (99-107); CREATININE 0.99 MG/DL (0.40-0.90); PRE OP ALT 16 U/L (30-65); PRE OP ANION GAP 7 (8-16); PRE OP AST 16 U/L (10-37); PRE OP BILIRUB, TOTAL 0.4 MG/DL (0.0-1.0); PRE OP GLUCOSE 86 MG/DL (70-104); PRE OP POTASSIUM 4.6 MMOL/L (3.4-5.1); PRE OP SODIUM 140 MMOL/L (135-145); TOTAL CARBON DIOXIDE 27.1 MMOL/L (24-32); eGFR 54 ML/MIN
[2024-05-26] VITALS (37 sets, daily range): BP systolic 82–152; BP diastolic 37–99; PULSE 55–89; RESP 10–22; TEMP 97–97.6; O2SAT 87–100
[~2024-05-26] VITALS: Ht 152.4 cm; Wt 69.0 kg
[~2024-05-26 06:33] MED LIST changes: -EFF37.5XRC PO; +IBUP-2697 PO; +LISI10TA27 PO; -MIRT15TA8 PO; -OSC500T PO; -PANT40TA4 PO; -TRAZ-218 PO; +VANCOMYCIN 1GM 200ML H20 (PEG) 200 ML IV ONE
[2024-05-26] MEDS: tranexamic acid 1gm/0.7% sal. 100 ML IV ONE (06:50)
[2024-05-26] MEDS ORDERED: vancomycin 1,000mg inj ONE (07:15)
[2024-05-26] MEDS: ROPIVAcaine inj 200 MG, epiNEPHrine inj 0.6 MG, morphine 10mg/ml inj. 5 MG in normal sa... IU ONE (07:25)
[2024-05-26] MEDS: vancomycin/NS 1 GM ADD-VANTAGE 250 ML IV ONE (07:35)
[2024-05-26] MEDS: ringers solution, lacted 1,000 ML IV SCH ×2 (07:35→08:25)
[2024-05-26] MEDS: ceFAZolin 2gm in dextrose, iso 50 ML IV ONE (07:35)
[2024-05-26] MEDS: famotidine 20mg tablet PO ONE (07:35)
[2024-05-26] MEDS ORDERED: BUPIVAcaine 2.5mg/ml inj 50ml vial (contains preservative) ONE (08:13)
[2024-05-26] MEDS ORDERED: tetracaine 1% (10mg/ml) pres. free inj. ONE (08:13)
[2024-05-26] MEDS ORDERED: fentaNYL/PF 50MCG/1 ML 2ML syringe ONE (08:17)
[2024-05-26] MEDS ORDERED: MIDAZolam 1mg/ml 10ml vial ONE (08:17)
[2024-05-26] MEDS ORDERED: fentaNYL/PF 50MCG/1 ML 2ML syringe IV PRN ×2 (08:25)
[2024-05-26] MEDS ORDERED: labetalol 20mg/4ml (5mg/ml) syringe IV PRN (08:25)
[2024-05-26] MEDS ORDERED: hydrALAZINE 20mg/ml inj. IV PRN (08:25)
[2024-05-26] MEDS ORDERED: morphine 2 MG/ML inj. syringe IV PRN (08:25)
[2024-05-26] MEDS ORDERED: ePHEDrine 50MG/ML INJ. ONE (08:53)
[2024-05-26] MEDS ORDERED: diphenhydrAMINE 50 mg/ml inj ONE (09:16)
[2024-05-26] MEDS ORDERED: BUPIVACAINE liposomal/PF 13.3 MG/ML 10mL vial IM ONE (09:43)
[2024-05-26] MEDS ORDERED: ondansetron/PF 4mg/2ml inj IV PRN (11:45)
[2024-05-26] MEDS ORDERED: diphenhydrAMINE 25mg capsule PO PRN ×2 (11:45)
[2024-05-26] MEDS ORDERED: bisacodyl 10mg suppository rectal RC PRN (11:45)
[2024-05-26] MEDS ORDERED: acetaminophen 325mg tablet PO PRN (11:45)
[2024-05-26] MEDS ORDERED: TRANEXAMIC ACID IV ONE ×2 (11:45→15:00)
[2024-05-26] MEDS ORDERED: HYDROmorphone inj. 0.5 MG/0.5 ML DISP.SYRIN IV PRN (11:45)
[2024-05-26] MEDS ORDERED: magnesium hydroxide 30ml (MOM) UD suspension PO PRN (11:45)
[2024-05-26] MEDS: potassium Cl 20mEq in NS 1,000 ML IV SCH (11:45)
[2024-05-26] MEDS ORDERED: NORMAL SALINE IV ONE ×2 (11:45→15:00)
[2024-05-26] MEDS ORDERED: naloxone 0.4 mg/ml inj IV PRN (11:45)
[2024-05-26] MEDS ORDERED: oxyCODONE IR 5mg (immed. release) tablet PO PRN ×2 (11:45)
[2024-05-26] MEDS: ROPIVAcaine 0.2%/PF PUMP/bolus 545 ML ADDCANAL SCH (12:06)
[2024-05-26] MEDS: gabapentin 300mg capsule PO SCH (13:00)
[2024-05-26] MEDS: ROPIVAcaine 0.2% (10 MG/5 ML) BOLUS INJECTION ADDCANAL PRN (13:11)
[2024-05-26] MEDS: acetaminophen 1,000mg/100ml IV 100 ML IV ONE (13:20)
[2024-05-26] MEDS: HYDROmorphone 1 mg/ml syringe IV PRN (13:46)
[2024-05-26] MEDS: acetaminophen 325mg tablet PO SCH (14:00)
[2024-05-26] MEDS: morphine 4 MG/ML inj SYRINge IV PRN (14:41)
[2024-05-26] MEDS: NORMAL SALINE IV ONE (15:06)
[2024-05-26] MEDS: TRANEXAMIC ACID IV ONE (15:06)
[2024-05-26] MEDS: ondansetron/PF 4mg/2ml inj IV PRN (16:16)
[2024-05-26] MEDS: ceFAZolin/D5W- 1GM premix 50 ML IV SCH (17:19)
[2024-05-26] MEDS: lisinopril 10 MG tablet PO SCH (20:07)
[2024-05-26] MEDS: sennosides 8.6mg tablet PO SCH (20:07)
[2024-05-26] MEDS: vancomycin/NS 1 GM ADD-VANTAGE 250 ML IV SCH (20:28)
[2024-05-26 21:37] LABS: APTT 24 SECONDS (22-32); BASOPHILS % (AUTO) 0.4 % (0-1); EOSINOPHILS % (AUTO) 0.2 % (0-6); HEMATOCRIT 34.1 % (35.0-45.0); HEMOGLOBIN 11.2 g/dl (12.0-16.0); LYMPHOCYTES # (AUTO) 0.8 X10'3 (1.1-4.8); LYMPHOCYTES % (AUTO) 7.2 % (21-51); MEAN CORPUSCULAR HEMOGLOBIN 30.8 PG (27.0-31.0); MEAN CORPUSCULAR HGB CONC 32.8 g/dL (33.0-36.5); MEAN CORPUSCULAR VOLUME 94.1 FL (78-98); MEAN PLATELET VOLUME 7.2 FL (7.4-10.4); MONOCYTES # (AUTO) 0.6 X10'3 (0-0.9); NEUTROPHILS % (AUTO) 86.2 % (42-75); PLATELET COUNT 293 X10'3 (140-440); PROTHROMBIN TIME 10.6 SECONDS (9.0-12.0); RED BLOOD COUNT 3.63 X10'6 (4.20-5.60); RED CELL DISTRIBUTION WIDTH 13.9 % (11.5-14.5); WHITE BLOOD COUNT 10.4 X10'3 (4.5-11.0)
[2024-05-26 21:45] LABS: ALANINE AMINOTRANSFERASE 11 U/L (12-78); ALBUMIN 2.8 G/DL (3.4-5.0); ALBUMIN/GLOBULIN RATIO 0.8 (1.1-1.5); ALKALINE PHOSPHATASE 79 IU/L (46-116); ANION GAP 6 (8-16); ASPARTATE AMINO TRANSFERASE 19 U/L (10-37); BILIRUBIN,TOTAL 0.5 MG/DL (0.1-1.0); BLOOD UREA NITROGEN 16 MG/DL (7-18); CALCIUM 9.2 MG/DL (8.5-10.1); CHLORIDE 106 MMOL/L (99-107); CREATININE 1.14 MG/DL (0.40-0.90); GLUCOSE 117 MG/DL (70-104); POTASSIUM 4.6 MMOL/L (3.5-5.1); PRO BRAIN NATRIURETIC PEPTIDE 468 PG/ML (0-450); SODIUM 138 MMOL/L (135-145); TOTAL PROTEIN 6.2 G/DL (6.4-8.2); eCRCL 27 ML/MIN; eGFR 46 ML/MIN
[2024-05-27 02:00] VITALS: BP 114/43; PULSE 69; RESP 16; TEMP 97.9; O2SAT 100
[2024-05-27 06:00] VITALS: BP 135/54; PULSE 75; RESP 16; TEMP 97.9; O2SAT 100
[2024-05-27 07:00] VITALS: RESP 16; O2SAT 100
[2024-05-27 07:17] LABS: RSV LAB CLEARVIEW AG NEGATIVE (NEGATIVE)
[2024-05-27] MEDS: enoxaparin 40mg/0.4ml syringe SQ SCH (08:00)
[2024-05-27 10:00] VITALS: BP 133/67; PULSE 83; RESP 22; TEMP 98; O2SAT 94
[2024-05-27 18:00] VITALS: BP 109/57; PULSE 102; RESP 16; TEMP 98.3; O2SAT 96
[2024-05-27] MEDS: celeCOXIB 100mg capsule PO SCH (19:47)
[2024-05-27 22:00] VITALS: BP 95/52; PULSE 99; RESP 16; TEMP 98; O2SAT 90
[2024-05-28 06:00] VITALS: BP 118/60; PULSE 91; RESP 16; TEMP 98.3; O2SAT 93
[2024-05-28 07:00] VITALS: RESP 16; O2SAT 93
[2024-05-28 08:09] LABS: BASOPHILS # (AUTO) 0.1 X10'3 (0-0.2); BASOPHILS % (AUTO) 0.5 % (0-1); EOSINOPHILS % (AUTO) 0.4 % (0-6); HEMATOCRIT 34.9 % (35.0-45.0); HEMOGLOBIN 11.4 g/dl (12.0-16.0); LYMPHOCYTES # (AUTO) 1.1 X10'3 (1.1-4.8); LYMPHOCYTES % (AUTO) 10.4 % (21-51); MEAN CORPUSCULAR HEMOGLOBIN 30.9 PG (27.0-31.0); MEAN CORPUSCULAR HGB CONC 32.7 g/dL (33.0-36.5); MEAN CORPUSCULAR VOLUME 94.3 FL (78-98); MEAN PLATELET VOLUME 7.8 FL (7.4-10.4); MONOCYTES # (AUTO) 1.4 X10'3 (0-0.9); MONOCYTES % (AUTO) 13.9 % (2-12); NEUTROPHILS # (AUTO) 7.7 X10'3 (1.8-7.7); NEUTROPHILS % (AUTO) 74.8 % (42-75); PLATELET COUNT 275 X10'3 (140-440); RED CELL DISTRIBUTION WIDTH 14.3 % (11.5-14.5); WHITE BLOOD COUNT 10.3 X10'3 (4.5-11.0)
[2024-05-28 10:00] VITALS: BP 101/70; PULSE 100; RESP 19; TEMP 97.8; O2SAT 96
[2024-05-28 18:00] VITALS: BP 94/62; PULSE 90; RESP 17; TEMP 97.3; O2SAT 96
[2024-05-28 19:15] VITALS: BP 137/63; PULSE 100
[2024-05-28 22:00] VITALS: BP 120/65; PULSE 99; RESP 16; TEMP 97.6; O2SAT 91
[2024-05-29 06:00] VITALS: BP 94/48; PULSE 52; RESP 16; TEMP 98.8; O2SAT 95
[2024-05-29 07:00] VITALS: RESP 16; O2SAT 95
[2024-05-29] MEDS ORDERED: magnesium hydroxide 30ml (MOM) UD suspension PO PRN (10:15)
[2024-05-29] MEDS ORDERED: ROPIVAcaine 0.2% (10 MG/5 ML) BOLUS INJECTION ADDCANAL PRN (12:25)
[2024-05-29] MEDS: ROPIVAcaine 0.2%/PF PUMP/bolus 545 ML ADDCANAL SCH (12:25)
== END 2024-05-29 15:15 | DRG 469 ==
LOC: PAS IN 06:33 → ORTHO 4S 15:44
PROVIDERS: ADMIT Orthopaedic Surgery; ATTEND Orthopaedic Surgery
PROC: 0JH80WZ Insertion of Totally Implantable Vascular Access Device into Abdomen Subcutaneous Tissue and Fascia, Open Approach (ICD-10-PCS; 2024-05-26)
PROC: 3E0T3BZ Introduction of Anesthetic Agent into Peripheral Nerves and Plexi, Percutaneous Approach (ICD-10-PCS; 2024-05-26)
PROC: 3E0U029 Introduction of Other Anti-infective into Joints, Open Approach (ICD-10-PCS; 2024-05-26)
PROC: 0SRD0J9 Replacement of Left Knee Joint with Synthetic Substitute, Cemented, Open Approach (ICD-10-PCS; principal; 2024-05-26 08:25)
DX: M17.12 Unilateral primary osteoarthritis, left knee (principal); J96.01 Acute respiratory failure with hypoxia; I10 Essential (primary) hypertension; Z20.822 Contact with and (suspected) exposure to COVID-19; F32.A Depression, unspecified; Z88.0 Allergy status to penicillin
CPT/HCPCS: 36415; 71045; 73560; 80053; 82948; 83605; 83880; 85025; 85610; 85730; 87081; 87502; 87503; 87811; 93005; 97110; 97116; 97161; 97530; A4215; A4615; A6253; A6258; A6446; A6449; A6454; A7000; C1713; C1758; C1776; C9250; G0378; J0131; J0666; J0690; J1171; J1200; J1650; J2250; J2270; J2405; J2795; J3010; J3370; J3372; J3480; J3490; J7120